=== PATIENT | male | born 1990 ===

== ENCOUNTER 2017-10-09 10:30 | Inpatient (IN) | payer OTHER ==
[~2017-10-09] VITALS: Ht 185.4 cm; Wt 90.7 kg
[2017-10-09] MEDS ORDERED: MULTIVITAMINS1 EAC9 (14:49)
[2017-10-09] MEDS ORDERED: [UNRECOGNIZED DRUG - OTHER] (14:50)
== END 2017-10-17 09:55 | disposition home or self-care (01) | DRG 621 ==
LOC: SURG 10-16 07:00 → O/R 10-16 09:45 → SURG 10-16 10:30
PROVIDERS: Specialist
PROC: 0J080ZZ Alteration of Abdomen Subcutaneous Tissue and Fascia, Open Approach (ICD-10-PCS; principal; 2017-10-16 07:00)
DX: E65 Localized adiposity (principal)